=== PATIENT | female | born 1965 | race Caucasian/White ===

== ENCOUNTER → 2022-10-16 12:52 | Outpatient (BNVA) | payer OTHER, SELFPAY | PROVIDERS: PCP Internal Medicine; Visit Provider Nurse Practitioner Family | DX: Z13.89 Encounter for screening for other disorder (principal) ==

== ENCOUNTER 2022-12-17 09:16 | Day surgery (SDC) | payer OTHER, SELFPAY ==
[2022-12-17] VITALS (7 sets, daily range): BP systolic 104–122; BP diastolic 53–71; PULSE 66–82; RESP 14–20; TEMP 36.3–36.9; O2SAT 95–98; BMI 20.2
--- NOTE | ~2022-12-17 | FL_ITS ---
PROCEDURE: XR FL--GUIDED LUMBAR PUNCTURE CLINICAL INFORMATION: Multiple sclerosis. COMPARISON: None available. TECHNIQUE: Fluoroscopic-guided lumbar puncture. FINDINGS/PROCEDURE: Informed consent was obtained from the patient prior to the procedure. During this process, the procedure and potential alternatives were explained, along with the intended outcome and benefits. The risks of the procedure, as well as the risk of not doing the procedure, were discussed. The patient was given the opportunity to ask questions regarding the procedure and appeared competent to make medical decisions. A signed consent form which documents this discussion was placed in the medical record. Using sterile technique and fluoroscopic guidance, a 22-gauge spinal needle was directed from a posterior approach into the thecal sac at the L4-L5 level. A total of 13 mL of clear CSF fluid was removed. Opening pressure was 11.5 cm of water. FLUOROSCOPY TIME: 0.3 minutes. DOSE AREA PRODUCT: 1.467 Gy-cm2 (brady-centimeter squared). FL/FL guided lumbar puncture LP IMPRESSION: Unremarkable lumbar puncture.
[2022-12-17 09:34] LABS: MANUAL DIFF FLAG NO
[2022-12-17 09:39] LABS: Basophils Absolute Auto 0.1 X10*3/uL (0.0-0.2); Basophils Percent Auto 1.1 % (0-2); Eosinophils Absolute Auto 0.1 X10*3/uL (0.0-0.4); Eosinophils Percent Auto 2.2 % (0-4); Hematocrit 45.9 % (37.0-47.0); Imm Gran Abs Auto 0.01 X10*3/uL (0.00-0.03); Imm Gran Pct Auto 0.2 % (0.0-0.4); Lymphocytes Absolute Auto 1.5 X10*3/uL (1.2-4.9); Lymphocytes Percent Auto 33.6 % (20-40); Mean Corpuscular HGB Conc 32.7 g/dl (31.0-35.0); Mean Corpuscular Hemoglobin 29.1 pg (27.0-33.0); Mean Corpuscular Volume 89.1 fL (80.0-98.0); Mean Platelet Volume 9.9 fL (9.4-12.3); Monocytes Absolute Auto 0.3 X10*3/uL (0.1-1.2); Monocytes Percent Auto 7.4 % (2-11); Neutrophils Absolute Auto 2.5 x10*3/uL (2.0-8.3); Neutrophils Percent Auto 55.5 % (45-73); Platelet Count 273 X10*3/uL (160-400); Red Blood Count 5.15 X10*6/uL (4.20-5.50); Red Cell Distribution Width 11.9 % (11.0-16.0); White Blood Count 4.6 X10*3/uL (4.8-10.8)
[2022-12-17 09:44] LABS: INTERNATIONAL NORM RATIO 0.8 (0.9-1.1); Prothrombin Time 9.1 SEC (10.0-13.1)
[2022-12-17 09:47] LABS: Partial Thromboplastin Time 27.8 SEC (26.0-36.4)
[2022-12-17 10:08] LABS: Glucose, Whole Blood 130 mg/dL (60-115)
[2022-12-17 13:46] LABS: Appearance CSF CLEAR; CSF Tube # 1; Color CSF COLORLESS; Red Blood Cell CSF 25 MM*3; White Blood Cell CSF 0 MM*3
[2022-12-17 13:47] LABS: Appearance CSF CLEAR; CSF Tube # 4; Color CSF COLORLESS; Lymphocytes CSF 100 %; Red Blood Cell CSF 0 MM*3; White Blood Cell CSF 1 MM*3
[2022-12-17 13:55] LABS: CSF Appearance Clear, Colorless
[2022-12-17 13:58] LABS: CSF Tube # 1
[2022-12-17 14:08] LABS: Glucose CSF 89 mg/dL; Total Protein CSF 58.7 mg/dL (15-45)
[2022-12-19 16:28] LABS: VDRL Qualitative CSF Nonreactive (Nonreactive)
[2022-12-23 20:38] LABS: Lyme IgG CSF Immunoblot NO BANDS DETECTED; Lyme IgM CSF Immunoblot NO BANDS DETECTED
[2023-01-18 08:53] LABS: Albumin 60.4
[2023-01-18 08:54] LABS: Total Protein, CSF 61
[2023-01-18 08:55] LABS: Alpha-1-Globulin,CSF 5.9; Alpha-2-Globulin,CSF 7.3; Beta Globulin, CSF 15.8; Gamma Globulin 7.4
[2023-01-18 08:58] LABS: IgG 952; IgG, CSF 4.8; Prealbumin, CSF 3.2
== END 2022-12-17 15:21 | disposition home or self-care (01) ==
PROVIDERS: Radiology Diagnostic Radiology; Visit Provider Nurse Practitioner Family
PROC: 009U3ZZ Drainage of Spinal Canal, Percutaneous Approach (ICD-10-PCS; CPT 62270; principal; 2022-12-17 11:00)
DX: R90.82 White matter disease, unspecified (principal); H53.2 Diplopia; G43.009 Migraine without aura, not intractable, without status migrainosus; F09 Unspecified mental disorder due to known physiological condition; E11.9 Type 2 diabetes mellitus without complications; I10 Essential (primary) hypertension; Z79.85 Long-term (current) use of injectable non-insulin antidiabetic drugs; Z79.899 Other long term (current) drug therapy; Z88.2 Allergy status to sulfonamides; Z88.8 Allergy status to other drugs, medicaments and biological substances; Z87.891 Personal history of nicotine dependence
CPT/HCPCS: 36415; 62328; 82042; 82945; 82947; 83916; 84157; 84166; 85025; 85610; 85730; 86592; 86617; 87015; 87070; 87205; 89051

== ENCOUNTER 2022-12-22 11:20 | Emergency (ER) | payer OTHER, SELFPAY ==
--- NOTE | ~2022-12-22 | XR_ITS ---
EXAMINATION: XR KNEE, LEFT CLINICAL INFORMATION: Pain COMPARISON: None available. TECHNIQUE: 2 views of the left knee. FINDINGS: Bones and soft tissues are normal. No fracture or joint effusion. Alignment is anatomic. Joint spaces are well maintained. No abnormal soft tissue calcification. XR/XR knee LT 2V IMPRESSION: Normal left knee.
--- NOTE | 2022-12-22 11:29 | ECG_ITS ---
Test Reason : syncope Blood Pressure : / mmHG Vent. Rate : 074 BPM Atrial Rate : 074 BPM P-R Int : 174 ms QRS Dur : 068 ms QT Int : 372 ms P-R-T Axes : 031 020 016 degrees QTc Int : 412 ms Normal sinus rhythm Low voltage QRS Cannot rule out Anteroseptal infarct , age undetermined Abnormal ECG No previous ECGs available Referred By: Clara Byrd Electronically Signed By:JOSE SLAUGHTER MD
[2022-12-22 11:32] VITALS: BP 127/87; PULSE 79; RESP 18; TEMP 36.1; O2SAT 98; BMI 20.4
--- NOTE | 2022-12-22 11:33 | ED_ITS ---
HPI - Syncope General Chief Complaint: Extremity Problem Stated Complaint: Syncope this am/compilations from lumbar puncture Time Seen by Provider: 12/22/22 13:23 Source: patient Mode of arrival: ambulatory Limitations: no limitations History of Present Illness HPI narrative: Patient undergoing extensive workup for MS including having and MRI that shows severe White matter disease and an LP that show high protein.? Patient stood up, had sudden left knee pain and passed out, she had urinary incontinence. states that she did not have a seizure. MD complaint: loss of consciousness Onset (ago): minute(s) -: second(s) Description of event: incontinence Related Data Home Medications Medication Instructions Recorded Confirmed biotin 2,500 mcg capsule 5 mg PO DAILY 10/15/22 10/16/22 [id number]-wmrbxngnppfnt-kcftyeok 1 tab PO Q6H PRN 10/15/22 50 mg-325 mg-40 mg tablet empagliflozin 25 mg tablet 25 mg PO DAILY 10/15/22 10/16/22 (Jardiance) magnesium oxide 400 mg PO DAILY 10/15/22 10/16/22 multivitamin 1 tab PO DAILY 10/15/22 10/16/22 omega-3 fatty acids 1,000 mg 1,000 mg PO DAILY 10/15/22 10/16/22 capsule semaglutide 0.25 mg or 0.5 mg (2 mg subcut 10/15/22 10/16/22 mg/1.5 mL) subcutaneous pen injector (Ozempic) sertraline 50 mg tablet 50 mg PO DAILY 10/15/22 10/16/22 valsartan 80 mg tablet 80 mg PO DAILY 10/15/22 10/16/22 zolpidem 5 mg tablet 5 mg PO BEDTIME PRN 10/15/22 10/16/22 atorvastatin 10 mg tablet 10 mg PO DAILY 10/16/22 10/16/22 Previous Rx's Medication Instructions Recorded magnesium oxide 400 mg (241.3 mg 400 mg PO BEDTIME 30 days #30 tabs 10/16/22 magnesium) tablet riboflavin (vitamin B2) 400 mg 400 mg PO DAILY 30 days #30 tabs 10/16/22 tablet sumatriptan succinate 100 mg tablet 50 - 100 mg PO .COMPLEX PRN 10/16/22 migraine headache 30 days #12 tabs rizatriptan 10 mg tablet 5 - 10 mg PO Q2H PRN migraine 10/19/22 headache 21 days #12 tabs amitriptyline 10 mg tablet 10 mg PO BEDTIME 30 days #30 tabs 11/16/22 alprazolam 0.25 mg tablet 0.25 mg PO .COMPLEX 1 day #2 tabs 12/10/22 naproxen 500 mg tablet (Naprosyn) 500 mg PO BID #20 tabs 12/22/22 Allergies Allergy/AdvReac Type Severity Reaction Status Date / Time metformin Allergy Unknown Unknown Verified 10/16/22 13:06 Sulfa (Sulfonamide Allergy Unknown Unknown Verified 10/16/22 13:06 Antibiotics) Review of Systems Review of Systems: Yes all other systems are reviewed and are negative Musculoskeletal: Comments: knee pain Neurologic: Denies Sensory deficit (Neuro) [facility] Past Medical History Medical History Diabetes HTN (hypertension) Surgical History H/O wrist surgery History of section History of radial keratotomy Hx of tubal ligation S/P trigger finger release [place] teeth extracted Family History Family History Mother Hypertension Cataract Cerebrovascular accident (CVA) Dementia Father Hypertension Maternal Grandfather Alzheimer disease Paternal Grandfather Alcohol abuse Sister Celiac disease Brother Colitis Social History Social History Alcohol intake: current Alcohol intake frequency: a few times a month Patient Tobacco Use Status: Former Tobacco user Quit Date: 1990 Smoked in Last 30 Days: No Use of substances other than those prescribed or required for medical reasons: No Advance Directives: No Advance Directives Information Provided: No Physical Exam Vital Signs: Vital Signs: Last Vital Signs Temp 98.8 F 12/22/22 14:25 Pulse 80 12/22/22 14:25 Resp 18 12/22/22 14:25 BP 128/64 12/22/22 14:25 Pulse Ox 98 12/22/22 14:25 O2 Del Method Room Air 12/22/22 14:25 BMI result Body Mass Index 20.4 Const: General: healthy appearing Nutritional Appearance: average body habitus Orientation/consciousness: oriented to person and patient oriented x3 Limitations: no limitations HEENT: Head: Yes normal to inspection Ears: external ears normal General nose exam: Normal external nose present Mouth: Normal oral and palatal mucosa present and oropharynx normal Throat: Yes posterior oropharynx normal Eyes: General: appearance normal, both eyes and all related structures Neck: Other: supple Neck: Yes normal visual inspection Chest: Chest palpation & inspection: normal inspection of the chest Resp: Auscultation: clear to auscultation bilaterally Cardio: Jugular venous distension: no JVD Rate: regular rate Rhythm: regular rhythm Heart sounds: S1 normal heart sound present and S2 normal heart sound present GI: Inspection: Yes normal to inspection Palpation (GI): Soft to palpation, nontender and No hepatosplenomegaly present Auscultation: normal bowel sounds : General: Yes no CVA tenderness Back/Spine/Pelvis: Back: no CVA tenderness Skin: General skin exam: no rashes or lesions noted Neuro: General: oriented to person and patient oriented x3 Cranial nerves: Yes CN's II-XII intact bilaterally Motor exam (neuro): 5/5 motor strength present throughout Sensory Exam: No Sensory deficit (Neuro) Extrem: Other: left knee with no effusion no redness, slight pain with range of motion Psych: Appearance: grossly normal Course Course Course Narrative: RME - 57 yo female with history of recent lumbar puncture (as part of MS work up) here by Dr. Sharpe, hx DM2, hx HTN who present to the ER for evaluation of left knee pain that started yesterday, associated with a syncopal event this morning when she went to stand up. she states she couldnt stand on the left leg and that made her collapse. +urinary incontinence. eyes were open but unresponsive for 30-40 seconds per EMS. no seizure history. Ambulating with steady gait into triage. Plan: lab workup, EKG Reevaluation(s) Reevaluation #1: Patient with likely vasovagal syncope secondary to knee pain, work up negative, patient non focal Time: 15:44 Medications Administered Discontinued Medications Generic Name Dose Route Start Last Admin Trade Name Freq PRN Reason Stop Dose Admin Ketorolac Tromethamine 60 mg 12/22/22 13:57 12/22/22 14:18 Ketorolac Tromethamine 60 Mg/2 Ml Vial IM 12/22/22 13:58 60 mg ONCE ONE Administration Medical Decision Making Differential Diagnosis Differential Diagnoses: The differential diagnosis associated with the presentation includes (cardiac syncope, vasovagal syncope, seizure were all considered) Admission/Observation Consideration of admission/observation: Escalation of care including admission/observation considered (in this 57 female with recent workup for MS and possible seizure and or syncope admission was considered) Lab Data MDM Lab Attestation statement: I reviewed the patient's lab results. 12/22/22 11:44 12/22/22 11:44 Labs: Lab Results 12/22/22 12/22/22 12/22/22 Range/Units 11:44 11:44 13:48 WBC 7.2 (4.8-10.8) X10*3/uL RBC 4.80 (4.20-5.50) X10*6/uL Hgb 14.6 (12.0-16.0) g/dl Hct 43.5 (37.0-47.0) % MCV 90.6 (80.0-98.0) fL MCH 30.4 (27.0-33.0) pg MCHC 33.6 (31.0-35.0) g/dl RDW 11.8 (11.0-16.0) % Plt Count 249 (160-400) X10*3/uL MPV 9.9 (9.4-12.3) fL Immature Gran % (Auto) 0.7 H (0.0-0.4) % Neut % (Auto) 76.9 H (45-73) % Lymph % (Auto) 15.4 L (20-40) % [place] % (Auto) 5.6 (2-11) % Eos % (Auto) 0.8 (0-4) % Baso % (Auto) 0.6 (0-2) % Lymph # (Auto) 1.1 L (1.2-4.9) X10*3/uL [place] # (Auto) 0.4 (0.1-1.2) X10*3/uL Eos # (Auto) 0.1 (0.0-0.4) X10*3/uL Baso # (Auto) 0.0 (0.0-0.2) X10*3/uL Abs Immat Gran (auto) 0.05 H (0.00-0.03) X10*3/uL Absolute Neuts (auto) 5.5 (2.0-8.3) x10*3/uL Absolute Nucleated RBC 0.000 (0.0-0.012) X10*3/uL Nucleated RBC % (auto) 0.0 (0.0-0.2) /100WBC Sodium 139 (135-145) mmol/L Potassium 4.2 (3.3-5.1) mmol/L Chloride 104 (96-108) mmol/L Carbon Dioxide 26 (22-29) mmol/L Anion Gap 13 (12-20) BUN 13 (9-16) mg/dL Creatinine 0.73 (0.5-1.4) mg/dL Estim Creat Clear Calc 69.1 Estimated GFR > 60 Random Glucose 187 H (60-115) mg/dL Calcium 9.7 (8.4-10.2) mg/dL Magnesium 2.0 (1.6-2.6) mg/dL Total Bilirubin 0.5 (0.0-1.0) mg/dL Direct Bilirubin 0.1 (0.0-0.5) mg/dL AST 30 (5-31) U/L ALT 38 H (0-31) U/L Alkaline Phosphatase 111 (39-117) U/L Troponin I High Sens (<3.5-17.0) ng/L Total Protein 7.1 (6.5-8.0) g/dL Albumin 4.2 (3.5-5.0) g/dL Urine Color Yellow Urine Appearance Clear Urine pH 6.0 (5.0-9.0) Ur Specific [place] >= 1.030 H (1.005-1.025) Urine Protein Negative (Neg-Trace) mg/dL Urine Glucose (UA) >=1000 H (Negative) mg/dL Urine Ketones Negative (Negative) mg/dL Urine Blood Negative (Negative) Urine Nitrite Negative (Negative) Ur Leukocyte Esterase Negative (Negative) Urine RBC 0-2 (0-2) /HPF Urine WBC 0-5 (0-5) /HPF Ur Squamous Epith Cells 3-5 (0-2) /HPF Urine Bacteria Trace (None Seen) Hyaline Casts 0-2 (0-2) /LPF 05/30/23 Range/Units 14:30 WBC (4.8-10.8) X10*3/uL RBC (4.20-5.50) X10*6/uL Hgb (12.0-16.0) g/dl Hct (37.0-47.0) % MCV (80.0-98.0) fL MCH (27.0-33.0) pg MCHC (31.0-35.0) g/dl RDW (11.0-16.0) % Plt Count (160-400) X10*3/uL MPV (9.4-12.3) fL Immature Gran % (Auto) (0.0-0.4) % Neut % (Auto) (45-73) % Lymph % (Auto) (20-40) % [place] % (Auto) (2-11) % Eos % (Auto) (0-4) % Baso % (Auto) (0-2) % Lymph # (Auto) (1.2-4.9) X10*3/uL [place] # (Auto) (0.1-1.2) X10*3/uL Eos # (Auto) (0.0-0.4) X10*3/uL Baso # (Auto) (0.0-0.2) X10*3/uL Abs Immat Gran (auto) (0.00-0.03) X10*3/uL Absolute Neuts (auto) (2.0-8.3) x10*3/uL Absolute Nucleated RBC (0.0-0.012) X10*3/uL Nucleated RBC % (auto) (0.0-0.2) /100WBC Sodium (135-145) mmol/L Potassium (3.3-5.1) mmol/L Chloride (96-108) mmol/L Carbon Dioxide (22-29) mmol/L Anion Gap (12-20) BUN (9-16) mg/dL Creatinine (0.5-1.4) mg/dL Estim Creat Clear Calc Estimated GFR Random Glucose (60-115) mg/dL Calcium (8.4-10.2) mg/dL Magnesium (1.6-2.6) mg/dL Total Bilirubin (0.0-1.0) mg/dL Direct Bilirubin (0.0-0.5) mg/dL AST (5-31) U/L ALT (0-31) U/L Alkaline Phosphatase (39-117) U/L Troponin I High Sens < 2.7 (<3.5-17.0) ng/L Total Protein (6.5-8.0) g/dL Albumin (3.5-5.0) g/dL Urine Color Urine Appearance Urine pH (5.0-9.0) Ur Specific [place] (1.005-1.025) Urine Protein (Neg-Trace) mg/dL Urine Glucose (UA) (Negative) mg/dL Urine Ketones (Negative) mg/dL Urine Blood (Negative) Urine Nitrite (Negative) Ur Leukocyte Esterase (Negative) Urine RBC (0-2) /HPF Urine WBC (0-5) /HPF Ur Squamous Epith Cells (0-2) /HPF Urine Bacteria (None Seen) Hyaline Casts (0-2) /LPF Independent Interpretation I performed an independent interpretation of an: EKG (sinus 74, subtle inferior st segment changes) and Plain X-Ray (knee: mild djd) Independent Historian Clinical information obtained from an independent historian. History obtained from or confirmed by: Spouse External Record Review External record reviewed: Outpatient record Discharge Plan Discharge Clinical Impression: Syncope, vasovagal, Acute knee pain Patient Disposition: Home, Self-Care Instructions: Syncope (ED), Knee Pain (ED) Prescriptions: New naproxen [Naprosyn] 500 mg tablet 500 mg PO BID Qty: 20 0RF No Action rizatriptan 10 mg tablet 5 - 10 mg PO Q2H PRN (Reason: migraine headache) 21 Days Qty: 12 3RF Rx Instructions: max 2 tabs per day or 4 tabs per week amitriptyline 10 mg tablet 10 mg PO BEDTIME 30 Days Qty: 30 3RF alprazolam 0.25 mg tablet 0.25 mg PO .COMPLEX 1 Days Qty: 2 0RF Rx Instructions: 0.25 mg orally 1 tab 30 minutes prior to lumbar puncture, may repeat x's 1; Ozempic 0.25 mg or 0.5 mg(2 mg/1.5 mL) pen injector subcut Jardiance 25 mg tablet 25 mg PO DAILY sertraline 50 mg tablet 50 mg PO DAILY mjevdjvcfu-ycxmxwumxednh-zgkb 50-325-40 mg tablet 1 tab PO Q6H PRN zolpidem 5 mg tablet 5 mg PO BEDTIME PRN valsartan 80 mg tablet 80 mg PO DAILY magnesium oxide 400 mg magnesium tablet 400 mg PO DAILY omega-3 fatty acids 1,000 mg capsule 1,000 mg PO DAILY multivitamin Tablet 1 tab PO DAILY biotin 2,500 mcg capsule 5 mg PO DAILY atorvastatin 10 mg tablet 10 mg PO DAILY riboflavin (vitamin B2) 400 mg tablet 400 mg PO DAILY 30 Days Qty: 30 6RF magnesium oxide 400 mg (241.3 mg magnesium) tablet 400 mg PO BEDTIME 30 Days Qty: 30 6RF Rx Instructions: may hold for loose stools sumatriptan succinate 100 mg tablet 50 - 100 mg PO .COMPLEX PRN (Reason: migraine headache) 30 Days Qty: 12 6RF Rx Instructions: 50 - 100 mg orally at onset of headache, may repeat in 2 hrs PRN; max 2 tabs per day or 4 tabs/week (may take with Excedrin) Referrals: Physician,Unknown J [Primary Care Provider] - 5 days
[2022-12-22 11:50] LABS: MANUAL DIFF FLAG NO
[2022-12-22 11:53] LABS: Basophils Percent Auto 0.6 % (0-2); Eosinophils Absolute Auto 0.1 X10*3/uL (0.0-0.4); Eosinophils Percent Auto 0.8 % (0-4); Hematocrit 43.5 % (37.0-47.0); Hemoglobin 14.6 g/dl (12.0-16.0); Imm Gran Abs Auto 0.05 X10*3/uL (0.00-0.03); Imm Gran Pct Auto 0.7 % (0.0-0.4); Lymphocytes Absolute Auto 1.1 X10*3/uL (1.2-4.9); Lymphocytes Percent Auto 15.4 % (20-40); Mean Corpuscular HGB Conc 33.6 g/dl (31.0-35.0); Mean Corpuscular Hemoglobin 30.4 pg (27.0-33.0); Mean Corpuscular Volume 90.6 fL (80.0-98.0); Mean Platelet Volume 9.9 fL (9.4-12.3); Monocytes Absolute Auto 0.4 X10*3/uL (0.1-1.2); Monocytes Percent Auto 5.6 % (2-11); Neutrophils Absolute Auto 5.5 x10*3/uL (2.0-8.3); Neutrophils Percent Auto 76.9 % (45-73); Platelet Count 249 X10*3/uL (160-400); Red Cell Distribution Width 11.8 % (11.0-16.0); White Blood Count 7.2 X10*3/uL (4.8-10.8)
[2022-12-22 12:06] LABS: Alanine Aminotransferase 38 U/L (0-31); Albumin Level 4.2 g/dL (3.5-5.0); Alkaline Phosphatase 111 U/L (39-117); Anion Gap 13 (12-20); Aspartate Amino Transferase 30 U/L (5-31); Bilirubin Direct 0.1 mg/dL (0.0-0.5); Bilirubin Total 0.5 mg/dL (0.0-1.0); Blood Urea Nitrogen 13 mg/dL (9-16); Calcium 9.7 mg/dL (8.4-10.2); Carbon Dioxide 26 mmol/L (22-29); Chloride 104 mmol/L (96-108); Creatinine Clr Calc Pharmacy 69.1; Estimated Glomerular Filt Rate > 60; Glucose Random 187 mg/dL (60-115); Potassium 4.2 mmol/L (3.3-5.1); Sodium 139 mmol/L (135-145); Total Protein 7.1 g/dL (6.5-8.0)
[2022-12-22 13:26] VITALS: BP 142/75; PULSE 81; RESP 18; O2SAT 94
--- NOTE | 2022-12-22 13:31 | PC.NURSE ---
Patient from home stating that on she had a lumbar puncture to rule out ms. States that yesterday she was going up and down the stairs and she started to feel a slight twinge in her knee. As the day progressed she states the pain worsened and today she has very limited mobility. States she passed out this morning for about 40 seconds according. States she was standing and then next thing she knew she was laying flat on the floor. States she was incontinent of urine . Patient states her said her eyes remained open and there was no seizure like activity. PERRLA. Reports a constant headache but otherwise no other pain. VSS.
[2022-12-22 13:36] VITALS: BP 129/58
[2022-12-22 13:39] VITALS: BP 128/71; BP 129/66; PULSE 83; PULSE 84
--- NOTE | 2022-12-22 13:47 | ED.GENADULT ---
HPI - General Adult General Chief complaint: Extremity Problem Stated complaint: Syncope this am/compilations from lumbar puncture Time Seen by Provider: 12/22/22 13:23 Source: patient Mode of arrival: ambulatory Limitations: no limitations History of Present Illness HPI narrative: Patient undergoing extensive workup for MS including having and MRI that shows severe White matter disease and an LP that show high protein. Related Data Home Medications Medication Instructions Recorded Confirmed biotin 2,500 mcg capsule 5 mg PO DAILY 10/15/22 10/16/22 ytcbacggyq-pshfflfkvalru-alydynnm 1 tab PO Q6H PRN 10/15/22 50 mg-325 mg-40 mg tablet empagliflozin 25 mg tablet 25 mg PO DAILY 10/15/22 10/16/22 (Jardiance) magnesium oxide 400 mg PO DAILY 10/15/22 10/16/22 multivitamin 1 tab PO DAILY 10/15/22 10/16/22 omega-3 fatty acids 1,000 mg 1,000 mg PO DAILY 10/15/22 10/16/22 capsule semaglutide 0.25 mg or 0.5 mg (2 mg subcut 10/15/22 10/16/22 mg/1.5 mL) subcutaneous pen injector (Ozempic) sertraline 50 mg tablet 50 mg PO DAILY 10/15/22 10/16/22 valsartan 80 mg tablet 80 mg PO DAILY 10/15/22 10/16/22 zolpidem 5 mg tablet 5 mg PO BEDTIME PRN 10/15/22 10/16/22 atorvastatin 10 mg tablet 10 mg PO DAILY 10/16/22 10/16/22 Previous Rx's Medication Instructions Recorded magnesium oxide 400 mg (241.3 mg 400 mg PO BEDTIME 30 days #30 tabs 10/16/22 magnesium) tablet riboflavin (vitamin B2) 400 mg 400 mg PO DAILY 30 days #30 tabs 10/16/22 tablet sumatriptan succinate 100 mg tablet 50 - 100 mg PO .COMPLEX PRN 10/16/22 migraine headache 30 days #12 tabs rizatriptan 10 mg tablet 5 - 10 mg PO Q2H PRN migraine 10/19/22 headache 21 days #12 tabs amitriptyline 10 mg tablet 10 mg PO BEDTIME 30 days #30 tabs 11/16/22 alprazolam 0.25 mg tablet 0.25 mg PO .COMPLEX 1 day #2 tabs 12/10/22 Allergies Allergy/AdvReac Type Severity Reaction Status Date / Time metformin Allergy Unknown Unknown Verified 10/16/22 13:06 Sulfa (Sulfonamide Allergy Unknown Unknown Verified 10/16/22 13:06 Antibiotics) [facility] Past Medical History Medical History (Updated 11/17/22 @ 15:35 by GAYE Adames) Diabetes HTN (hypertension) Surgical History (Updated 10/16/22 @ 13:23 by Lara Mena CMA) H/O wrist surgery History of section History of radial keratotomy Hx of tubal ligation S/P trigger finger release [place] teeth extracted Family History Family History Mother Hypertension Cataract Cerebrovascular accident (CVA) Dementia Father Hypertension Maternal Grandfather Alzheimer disease Paternal Grandfather Alcohol abuse Sister Celiac disease Brother Colitis Social History Social History (Updated 10/16/22 @ 13:23 by Lara Mena CMA) Alcohol intake: current Alcohol intake frequency: a few times a month Patient Tobacco Use Status: Former Tobacco user Quit Date: 1990 Physical Exam ED Vital Signs: Vital Signs - 24 hr 12/22/22 11:32 12/22/22 13:26 12/22/22 13:36 Temperature 97 F Pulse Rate 79 81 Respiratory Rate 18 18 Blood Pressure 127/87 142/75 H 129/58 L Pulse Oximetry 98 94 Oxygen Delivery Method Room Air Room Air 12/22/22 13:39 12/22/22 13:39 Temperature Pulse Rate 83 84 Respiratory Rate Blood Pressure 129/66 128/71 Pulse Oximetry Oxygen Delivery Method BMI result Body Mass Index 20.4 Medical Decision Making Lab Data 12/22/22 11:44 12/22/22 11:44 Labs: Lab Results 12/22/22 12/22/22 Range/Units 11:44 11:44 WBC 7.2 (4.8-10.8) X10*3/uL RBC 4.80 (4.20-5.50) X10*6/uL Hgb 14.6 (12.0-16.0) g/dl Hct 43.5 (37.0-47.0) % MCV 90.6 (80.0-98.0) fL MCH 30.4 (27.0-33.0) pg MCHC 33.6 (31.0-35.0) g/dl RDW 11.8 (11.0-16.0) % Plt Count 249 (160-400) X10*3/uL MPV 9.9 (9.4-12.3) fL Immature Gran % (Auto) 0.7 H (0.0-0.4) % Neut % (Auto) 76.9 H (45-73) % Lymph % (Auto) 15.4 L (20-40) % [place] % (Auto) 5.6 (2-11) % Eos % (Auto) 0.8 (0-4) % Baso % (Auto) 0.6 (0-2) % Lymph # (Auto) 1.1 L (1.2-4.9) X10*3/uL [place] # (Auto) 0.4 (0.1-1.2) X10*3/uL Eos # (Auto) 0.1 (0.0-0.4) X10*3/uL Baso # (Auto) 0.0 (0.0-0.2) X10*3/uL Abs Immat Gran (auto) 0.05 H (0.00-0.03) X10*3/uL Absolute Neuts (auto) 5.5 (2.0-8.3) x10*3/uL Absolute Nucleated RBC 0.000 (0.0-0.012) X10*3/uL Nucleated RBC % (auto) 0.0 (0.0-0.2) /100WBC Sodium 139 (135-145) mmol/L Potassium 4.2 (3.3-5.1) mmol/L Chloride 104 (96-108) mmol/L Carbon Dioxide 26 (22-29) mmol/L Anion Gap 13 (12-20) BUN 13 (9-16) mg/dL Creatinine 0.73 (0.5-1.4) mg/dL Estim Creat Clear Calc 69.1 Estimated GFR > 60 Random Glucose 187 H (60-115) mg/dL Calcium 9.7 (8.4-10.2) mg/dL Magnesium 2.0 (1.6-2.6) mg/dL Total Bilirubin 0.5 (0.0-1.0) mg/dL Direct Bilirubin 0.1 (0.0-0.5) mg/dL AST 30 (5-31) U/L ALT 38 H (0-31) U/L Alkaline Phosphatase 111 (39-117) U/L Total Protein 7.1 (6.5-8.0) g/dL Albumin 4.2 (3.5-5.0) g/dL Discharge Plan Discharge Prescriptions: No Action rizatriptan 10 mg tablet 5 - 10 mg PO Q2H PRN (Reason: migraine headache) 21 Days Qty: 12 3RF Rx Instructions: max 2 tabs per day or 4 tabs per week amitriptyline 10 mg tablet 10 mg PO BEDTIME 30 Days Qty: 30 3RF alprazolam 0.25 mg tablet 0.25 mg PO .COMPLEX 1 Days Qty: 2 0RF Rx Instructions: 0.25 mg orally 1 tab 30 minutes prior to lumbar puncture, may repeat x's 1; Ozempic 0.25 mg or 0.5 mg(2 mg/1.5 mL) pen injector subcut Jardiance 25 mg tablet 25 mg PO DAILY sertraline 50 mg tablet 50 mg PO DAILY uczzafiklx-bxqtosycyiucj-lphd 50-325-40 mg tablet 1 tab PO Q6H PRN zolpidem 5 mg tablet 5 mg PO BEDTIME PRN valsartan 80 mg tablet 80 mg PO DAILY magnesium oxide 400 mg magnesium tablet 400 mg PO DAILY omega-3 fatty acids 1,000 mg capsule 1,000 mg PO DAILY multivitamin Tablet 1 tab PO DAILY biotin 2,500 mcg capsule 5 mg PO DAILY atorvastatin 10 mg tablet 10 mg PO DAILY riboflavin (vitamin B2) 400 mg tablet 400 mg PO DAILY 30 Days Qty: 30 6RF magnesium oxide 400 mg (241.3 mg magnesium) tablet 400 mg PO BEDTIME 30 Days Qty: 30 6RF Rx Instructions: may hold for loose stools sumatriptan succinate 100 mg tablet 50 - 100 mg PO .COMPLEX PRN (Reason: migraine headache) 30 Days Qty: 12 6RF Rx Instructions: 50 - 100 mg orally at onset of headache, may repeat in 2 hrs PRN; max 2 tabs per day or 4 tabs/week (may take with Excedrin)
[2022-12-22] MEDS: Ketorolac Tromethamine 60 MG/2 ML VIAL IM (14:18)
[2022-12-22 14:19] LABS: Appearance Urine Clear; Color Urine Yellow; Glucose Urine UA >=1000 mg/dL (Negative); Leukocyte Esterase Urine Negative (Negative); Nitrite Urine Negative (Negative); Specific Gravity - Urine >= 1.030 (1.005-1.025); UMIC TRIGGER UACC YES; Urine Blood Negative (Negative); Urine Ketones Negative (Negative); Urine Protein Negative (Neg-Trace)
[2022-12-22 14:25] VITALS: BP 128/64; PULSE 80; RESP 18; TEMP 37.1; O2SAT 98
[2022-12-22 14:25] LABS: Bacteria Urine Trace (None Seen); Hyaline Casts Urine 0-2 /LPF (0-2); RBC Urine 0-2 /HPF (0-2); WBC Urine 0-5 /HPF (0-5)
[2022-12-22 15:18] LABS: Troponin-I High Sensitivity < 2.7 ng/L (<3.5-17.0)
== END 2022-12-22 16:16 | disposition home or self-care (01) ==
PROVIDERS: Physician Assistant; Emergency Provider Emergency Medicine
DX: R55 Syncope and collapse (principal); M25.562 Pain in left knee; G35 Multiple sclerosis; Z87.891 Personal history of nicotine dependence
CPT/HCPCS: 36415; 73560; 80048; 80076; 81001; 83735; 84484; 85025; 93005; 96372; 99284; 99285; J1885

== ENCOUNTER → 2022-12-31 08:23 | Outpatient (BNVA) | payer OTHER, SELFPAY | PROVIDERS: PCP Nurse Practitioner; Visit Provider Nurse Practitioner Family | DX: G43.009 Migraine without aura, not intractable, without status migrainosus (principal); R29.898 Other symptoms and signs involving the musculoskeletal system; R90.89 Other abnormal findings on diagnostic imaging of central nervous system; H53.2 Diplopia | CPT/HCPCS: 99212 ==

== ENCOUNTER 2023-01-21 11:22 | Outpatient (REF) | payer OTHER, SELFPAY ==
[2023-01-22 03:59] LABS: HBS Num1 0.47 mIU/mL (0-7.99); HBc Num1 0.14 S/CO (0.00-0.79); HBsAGNum1 0.29 S/CO (0.00-0.99); Hepatitis A Antibody IgM 0.18 Index (0-0.79); Hepatitis B Core Antibody Nonreactive (Nonreactive); Hepatitis B Surface Antigen Negative (Negative); ~HepC Num1 0.07 S/CO (0.00-0.79); ~Hepatitis A Antibody IgM Nonreactive (Nonreactive); ~Hepatitis B Surface Antibody NONREACTIVE (Nonreactive); ~Hepatitis C Antibody Nonreactive (Nonreactive)
[2023-01-25 21:33] LABS: Varicella IgG Antibody >4000.00 index
[2023-01-29 01:23] LABS: JCV Antibody POSITIVE; JCV Index Value 3.63
== END 2023-01-21 11:23 | disposition home or self-care (01) ==
LOC: HO.LAB 11:22
PROVIDERS: Visit Provider Nurse Practitioner Family
DX: Z01.84 Encounter for antibody response examination (principal); F09 Unspecified mental disorder due to known physiological condition; G43.009 Migraine without aura, not intractable, without status migrainosus; R90.82 White matter disease, unspecified
CPT/HCPCS: 36415; 86704; 86706; 86709; 86711; 86787; 86803; 87340